=== PATIENT | female | born 1950 | race Hispanic/Latino ===

== ENCOUNTER 2024-07-18 05:52 | Day surgery (SDC) | payer OTHER ==
[2024-07-18] VITALS (10 sets, daily range): BP systolic 130–175; BP diastolic 66–81; PULSE 55–70; RESP 15–18; TEMP 97–98
[~2024-07-18] VITALS: Ht 147.3 cm; Wt 83.5 kg
[2024-07-18] MEDS ORDERED: APIX5TAB PO (06:47)
[2024-07-18] MEDS ORDERED: ROSUVASTATIN PO (06:47)
[2024-07-18] MEDS ORDERED: HYDR25TA PO (06:51)
[2024-07-18] MEDS ORDERED: PARO-149 PO (06:51)
[2024-07-18] MEDS ORDERED: PROP225C24 PO (06:51)
[2024-07-18] MEDS: 0.9%NACL 1000ML 1,000 ML IV ONE (07:00)
[2024-07-18] MEDS ORDERED: proPOFol 10 MG/ML 20ML VIAL IV ONE (08:05)
--- NOTE | 2024-07-18 09:20 | NUR ---
Full and complete Discharge Instructions given to Patient and Family both verbally and in writing.. All questions answered.Voiced understanding to EUS and FNB procedure precautions and Follow Up. PIV removed with catheter tip intact. Denies c/o pain or discomfort. Ambulated to Bathroom where voided moderate amount. D/C'd W/C to POV with Family to Home.
== END 2024-07-18 09:25 | disposition home or self-care (01) ==
LOC: DAH 05:52 → ENDO 05:52
PROVIDERS: ATTEND Internal Medicine Gastroenterology
DX: R94.5 Abnormal results of liver function studies (principal); K73.9 Chronic hepatitis, unspecified; K29.70 Gastritis, unspecified, without bleeding; B96.81 Helicobacter pylori [H. pylori] as the cause of diseases classified elsewhere; K76.0 Fatty (change of) liver, not elsewhere classified; K64.0 First degree hemorrhoids; I48.0 Paroxysmal atrial fibrillation; R77.9 Abnormality of plasma protein, unspecified; I10 Essential (primary) hypertension; E78.5 Hyperlipidemia, unspecified; F41.9 Anxiety disorder, unspecified; F32.A Depression, unspecified; M19.90 Unspecified osteoarthritis, unspecified site; Z86.0100 Personal history of colon polyps, unspecified; Z90.49 Acquired absence of other specified parts of digestive tract; Z90.710 Acquired absence of both cervix and uterus; Z79.899 Other long term (current) drug therapy
CPT/HCPCS: 43238; J7030 ×2; J2704; A4615; A4215 ×3; A4223; A4222; A4221; A4663; A4606; J3490